=== PATIENT | female | born 1960 | race Caucasian/White ===

== ENCOUNTER 2017-03-01 20:57 | Outpatient (CLI) | payer BC ==
[~2017-03-01 20:57] MED LIST: [UNRECOGNIZED DRUG - OTHER] PO
== END 2017-03-02 06:15 | disposition home or self-care (01) ==
LOC: SLEEP 20:57
PROVIDERS: ATTEND Nurse Practitioner Family
DX: G47.10 Hypersomnia, unspecified (principal); R06.83 Snoring
CPT/HCPCS: 95810

== ENCOUNTER 2018-06-25 06:29 | Outpatient (CLI) | payer BC ==
[~2018-06-25] VITALS: Ht 162.6 cm; Wt 93.4 kg
[2018-06-25] MEDS ORDERED: THYR60TA27 PO (13:13)
== END 2018-06-25 13:15 | disposition home or self-care (01) ==
LOC: PREOP 06:29
PROVIDERS: ATTEND Surgery
DX: Z01.818 Encounter for other preprocedural examination (principal)

== ENCOUNTER 2018-07-02 08:51 | Day surgery (SDC) | payer BC ==
[~2018-07-02] VITALS: Ht 162.6 cm; Wt 90.7 kg
[~2018-07-02 08:51] MED LIST changes: +THYR60TA27 PO
[2018-07-02] MEDS ORDERED: NS IV 500 ML 500 ML ONE (09:12)
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
[2018-07-02 09:25] VITALS: BP 135/65
[2018-07-02] MEDS ORDERED: NS IV 500 ML 500 ML IV PRN (09:27)
[2018-07-02] MEDS ORDERED: fentaNYL INJECTION 100 MCG/2 ML AMP IVP ONE (09:30)
[2018-07-02] MEDS ORDERED: LIDOCAINE JELLY 2% 6 ML SYRINGE MM PRN (09:30)
[2018-07-02] MEDS ORDERED: MIDAZOLAM 2 MG/2 ML (VERSED) VIAL IVP ONE (09:30)
[2018-07-02] MEDS ORDERED: fentaNYL INJECTION 100 MCG/2 ML AMP ONE ×2 (10:34)
[2018-07-02] MEDS ORDERED: MIDAZOLAM 2 MG/2 ML (VERSED) VIAL ONE ×5 (10:34→10:35)
[2018-07-02] MEDS ORDERED: LIDOCAINE JELLY 2% 6 ML SYRINGE ONE (10:34)
[2018-07-02] MEDS ORDERED: ONDANSETRON 4 MG/2 ML (SDV) Z0FRAN ONE (10:35)
--- NOTE | 2018-07-02 10:47 | Progress Note-Pre Operative ---
Pre-Operative Progress Note H&P Reviewed The H&P was reviewed, patient examined and no changes noted. Date Seen by Provider: July 02, 2018 Time Seen by Provider: 10:00 Date H&P Reviewed: July 02, 2018 Time H&P Reviewed: 10:00 Pre-Operative Diagnosis: screening o SERENITY LOPEZ MD July 02, 2018 10:47
--- NOTE | 2018-07-02 10:47 | Conscious Sedation/ASA ---
Conscious Sedation Pre-Proced Time 10:00 ASA Score 2 For ASA 3 and 4: Consider anesthesia and medical clearance. Also, for patients with a history of failed moderate sedation consider anesthesia. Airway Lungs Heart ASA score ASA 1: a normal healthy patient ASA 2: a patient with a mild systemic disease (mid diabetes, controlled hypertension, obesity ASA 3: a patient with a severe systemic disease that limits activity (angina , COPD, prior Myocardial infarction) ASA 4: a patient with an incapacitating disease that is a constant threat to life (CHF, renal failure) ASA 5: a moribund patient not expected to survive 24 hrs. (ruptured aneurysm) ASA 6: a declared brain- patient whose organs are being harvested. For emergent operations, add the letter E after the classification Mallampati Classification Grade 2 Sedation Plan Analgesia, Amnesia, Plan communicated to team members, Discussed options with patient/fam, Discussed risks with patient/fam The patient is an appropriate candidate to undergo the planned procedure, sedation, and anesthesia. The patient immediately re-assessed prior to indication. SERENITY LOPEZ MD July 02, 2018 10:46
--- NOTE | 2018-07-02 10:49 | Discharge Inst-Surgical ---
D/C Lap Instructions-JOHN Follow Up Activity as tolerated High Fiber Diet 25g or more per day Avoid Alcohol, Caffeine, Spicy [place] and Acid foods. Drink 64 fluid oz or more of fluids per day. Symptoms to Report: Fever over 101 degree F, Nausea/Vomiting If any problems/questions: Contact your physician or go to Emergency Room SERENITY LOPEZ MD July 02, 2018 10:49
[2018-07-02] MEDS ORDERED: morphine INJ 10 MG/ML 1ML (SYR OR VIAL) IV PRN (11:00)
[2018-07-02] MEDS ORDERED: HYDROcodone/APAP 5 MG/325 MG (LORTAB) TAB PO PRN (11:00)
[2018-07-02] MEDS ORDERED: ACETAMINOPHEN 325 MG TABLET PO PRN (11:00)
[2018-07-02] MEDS ORDERED: ONDANSETRON 4 MG/2 ML (SDV) Z0FRAN IV PRN (11:00)
[2018-07-02 11:25] VITALS: BP 92/60
[2018-07-02 11:55] VITALS: BP 120/67
[2018-07-02 12:10] VITALS: BP 120/67
--- NOTE | 2018-07-02 12:35 | Progress Note-Post Operative ---
Post-Operative Progess Note Surgeon (s)/Carbon Sequestration Plant Engineer (s) Surgeon SERENITY LOPEZ MD Carbon Sequestration Plant Engineer: none Pre-Operative Diagnosis screening colo Post-Operative Diagnosis mild chronic stage 2 ext and int hemorrhoids. Procedure & Operative Findings Date of Procedure 07/02/18 Procedure Performed/Findings colonoscopy Anesthesia Type cs Estimated Blood Loss Estimated blood loss (mL): minimal Specimens/Packing Specimens Removed none SERENITY LOPEZ MD July 02, 2018 12:35
--- NOTE | 2018-07-02 14:55 | OPERATIVE REPORT ---
DATE OF SERVICE: 07/02/2018 ATTENDING PRIMARY PHYSICIAN: Charo Mccarthy DNP. PREOPERATIVE DIAGNOSIS: Screening colonoscopy. POSTOPERATIVE DIAGNOSIS: Mild chronic stage I external and internal hemorrhoids. Remainder of the rectum and colon were normal. PROCEDURE: Colonoscopy. SURGEON: Serenity Lopez MD ANESTHESIA: Conscious sedation. ESTIMATED BLOOD LOSS: Minimal. FINDINGS: Mild stage I external and internal hemorrhoids. Remainder of the rectum and colon were normal. There were no polyps or any neoplasm identified throughout the colon or rectum. DISPOSITION: The patient tolerated the procedure well. INDICATIONS: The patient is a 58-year-old female referred over to us for screening colonoscopy. She has not had a colonoscopy up to this point in her life. She states that she is otherwise doing well. Does not report any major issues with diarrhea, no constipation as well as no red blood per rectum nor any dark tarry stools. She also does not report any family history of any colon cancer or any other cancers. DESCRIPTION OF PROCEDURE: The patient was brought to the endoscopy suite, laid in the left lateral decubitus position. After adequate IV pain with sedated medications and conscious sedation anesthesia digital rectal examination was performed. Mild chronic stage I external and internal hemorrhoids were identified, which were not actively edematous nor inflamed and no bleeding. Normal sphincter tone was felt and there were no palpable masses. The endoscope was then intubated to the anus and the rectum gently insufflated. The endoscope was then advanced to the valves of Hayes in the rectum with no polyps or any neoplasms identified. We then proceeded through the sigmoid colon where no diverticulosis identified. The endoscope was then advanced to the remainder of the descending, transverse and ascending colon to the cecum. These segments were normal. There were no polyps or any neoplasms identified throughout the colon or rectum. Endoscope was then slowly withdrawn while taking a second look and suctioning of residual air with no additional findings. The patient tolerated the procedure well. We will recommend continued medical management with a high fiber diet with at least 25 grams of fiber per day as well as significant amounts of water daily to promote soft stools on a daily basis. She does not need another colonoscopy for another ten years. Job ID: [id number] DocumentID: [id number] Dictated Date: 07/02/2018 11:14:00 Mathematics Lecturer Date: 07/02/2018 14:55:11 Dictated By: SERENITY LOPEZ MD [facility]
== END 2018-07-02 12:10 | disposition home or self-care (01) ==
LOC: ENDO 08:51
PROVIDERS: ATTEND Surgery
DX: Z12.11 Encounter for screening for malignant neoplasm of colon (principal); K64.0 First degree hemorrhoids; Z87.891 Personal history of nicotine dependence

== ENCOUNTER → 2019-08-18 | Outpatient (CLI) | payer BC ==
--- NOTE | 2019-08-18 13:16 | Diagnostic Imaging Report ---
INDICATION: Routine screening. COMPARISON: 05/28/2012 and 02/24/2009. TECHNIQUE: 2D and 3D bilateral screening mammography was performed with CAD. FINDINGS: Both breasts are heterogeneously dense, limiting the sensitivity of mammography. Circumscribed densities in the upper-outer right breast are noted posteriorly, consistent with intraparenchymal lymph nodes. No spiculated mass or malignant appearing microcalcifications are seen. The axillae are unremarkable. IMPRESSION: No mammographic features suspicious for malignancy are identified. ACR BI-RADS Category 2: Benign findings. Result letter will be mailed to the patient. Note: At least 10% of breast cancer is not imaged by mammography. Dictated by: Dictated on workstation # [id number]
== END ==
LOC: RAD 11:22
PROVIDERS: ATTEND Nurse Practitioner Family
DX: Z12.31 Encounter for screening mammogram for malignant neoplasm of breast (principal)
CPT/HCPCS: 77063; 77067

== ENCOUNTER → 2020-08-24 | Outpatient (CLI) | payer BC ==
--- NOTE | 2020-08-24 13:17 | Diagnostic Imaging Report ---
INDICATION: Routine screening. COMPARISON: 08/18/2019. TECHNIQUE: 2D and 3D bilateral screening mammography was performed with CAD. FINDINGS: Both breasts remain heterogeneously dense, limiting the sensitivity of mammography. Intraparenchymal lymph nodes in the upper outer right breast are stable. No spiculated mass or malignant appearing microcalcifications are seen. The axillae are unremarkable. IMPRESSION: No mammographic features suspicious for malignancy are identified. ACR BI-RADS Category 2: Benign findings. Result letter will be mailed to the patient. Note: At least 10% of breast cancer is not imaged by mammography. Dictated by: Dictated on workstation # [id number]
== END ==
LOC: RAD 11:00
PROVIDERS: ATTEND Nurse Practitioner Family
DX: Z12.31 Encounter for screening mammogram for malignant neoplasm of breast (principal)
CPT/HCPCS: 77063; 77067

== ENCOUNTER 2021-04-21 17:32 | Inpatient (IN) | payer BC ==
[~2021-04-21] VITALS: Ht 162.6 cm; Wt 102.0 kg
--- NOTE | 2021-04-21 17:53 | ED General ---
General Stated Complaint: SOB, FEVER, COUGH, HIGH HEART RATE Source of Information: Patient Exam Limitations: No Limitations History of Present Illness Date Seen by Provider: Apr 21, 2021 Time Seen by Provider: 17:50 Initial Comments To ER by private vehicle from home with reports of fevers up to 101.5, nausea, myalgia, malaise, cough, sore throat. Symptoms began on Saturday of this week, 04/17/2021. She has had a flu vaccine and both COVID vaccines as well as a booster. This evening she noticed a high heart rate with exertion and decided to come to the emergency room. Her fever at home prior to arrival was 101. She has not yet taken any antipyretics. Aside from hypothyroidism she has no medical conditions. Severity: Moderate Associated Systoms: Cough, Fever/Chills, Malaise, Nausea/Vomiting, Weakness Allergies and Home Medications Allergies Coded Allergies: erythromycin base (Verified Adverse Reaction, Unknown, DIZZINESS, 06/25/18) Patient Home Medication List Home Medication List Reviewed: Yes Thyroid,Pork (Chief Meter Reader Thyroid) 60 Mg Tablet, 60 MG PO DAILY, (Reported) Entered as Reported by: TOMY REYNA on 06/25/18 1313 Review of Systems Review of Systems Constitutional: see HPI, chills, fever EENTM: see HPI Respiratory: see HPI, cough, short of breath Cardiovascular: no symptoms reported Genitourinary: no symptoms reported Musculoskeletal: no symptoms reported Skin: no symptoms reported Psychiatric/Neurological: No Symptoms Reported Hematologic/Lymphatic: No Symptoms Reported Past Tzxytan-Imlcuk-Foryap Hx Seasonal Allergies Seasonal Allergies: Yes Past Medical History Surgeries: Yes Section, Thyroidectomy Respiratory: Yes Sleep Apnea Currently Using CPAP: Yes Cardiac: No Neurological: No Genitourinary: No Gastrointestinal: No Musculoskeletal: No Endocrine: Yes (hx partial thyroidectomy) Hypothyroidsim HEENT: No Cancer: No Psychosocial: No Integumentary: No Blood Disorders: No Physical Exam Vital Signs Vital Signs - First Documented Capillary Refill : Height, Weight, BMI Height: 5'4.00" Weight: 200lbs. 0.0oz. 90.349708ex; 34.3 BMI Method: General Appearance: No Apparent Distress, WD/WN, Other (Heart rate is sinus, narrow complex 150. Blood pressure 217/120. Oxygen 93% on room air after walking to the room.) Eyes: Bilateral Eye Normal Inspection, Bilateral Eye PERRL HEENT: PERRL/EOMI, TMs Normal Neck: Full Range of Motion, Normal Inspection Respiratory: Normal Breath Sounds, No Accessory Muscle Use, No Respiratory Dist ress Cardiovascular: Normal Peripheral Pulses, Tachycardia Gastrointestinal: Normal Bowel Sounds, Non Tender, Soft Extremity: Normal Capillary Refill, Normal Inspection Neurologic/Psychiatric: Alert, Oriented x3 Skin: Normal Color, Warm/Dry Focused Exam Lactate Level 04/21/21 18:09: Lactic Acid Level 1.71 Lactic Acid Level Laboratory Tests Test 04/21/21 18:09 Lactic Acid Level 1.71 MMOL/L (0.50-2.00) Progress/Results/Core Measures Suspected Sepsis SIRS Temperature: Pulse: Respiratory Rate: Laboratory Tests 04/21/21 17:44: White Blood Count 18.3H Blood Pressure / Mean: 04/21/21 18:09: Lactic Acid Level 1.71 Laboratory Tests 04/21/21 17:44: Creatinine 0.78, Platelet Count 359, Total Bilirubin 0.4 Results/Orders Lab Results Laboratory Tests Test 04/21/21 17:44 04/21/21 18:09 04/21/21 18:30 Range/Units White Blood Count 18.3 H 4.3-11.0 10^3/uL Red Blood Count 4.62 3.80-5.11 10^6/uL Hemoglobin 14.0 11.5-16.0 g/dL Hematocrit 41 35-52 % Mean Corpuscular Volume 89 80-99 fL Mean Corpuscular Hemoglobin 30 25-34 pg Mean Corpuscular Hemoglobin Concent 34 32-36 g/dL Red Cell Distribution Width 12.5 10.0-14.5 % Platelet Count 359 130-400 10^3/uL Mean Platelet Volume 8.6 L 9.0-12.2 fL Immature Granulocyte % (Auto) 0 % Neutrophils (%) (Auto) 88 H 42-75 % Lymphocytes (%) (Auto) 7 L 12-44 % Monocytes (%) (Auto) 4 0-12 % Eosinophils (%) (Auto) 1 0-10 % Basophils (%) (Auto) 1 0-10 % Neutrophils # (Auto) 16.0 H 1.8-7.8 10^3/uL Lymphocytes # (Auto) 1.2 1.0-4.0 10^3/uL Monocytes # (Auto) 0.7 0.0-1.0 10^3/uL Eosinophils # (Auto) 0.2 0.0-0.3 10^3/uL Basophils # (Auto) 0.1 0.0-0.1 10^3/uL Immature Granulocyte # (Auto) 0.1 0.0-0.1 10^3/uL Neutrophils % (Manual) 81 % Lymphocytes % (Manual) 11 % Monocytes % (Manual) 4 % Eosinophils % (Manual) 1 % Basophils % (Manual) 0 % Band Neutrophils 3 % Blood Morphology Comment NORMAL D-Dimer 0.48 0.00-0.49 UG/ML Sodium Level 138 135-145 MMOL/L Potassium Level 3.8 3.6-5.0 MMOL/L Chloride Level 105 98-107 MMOL/L Carbon Dioxide Level 19 L 21-32 MMOL/L Anion Gap 14 5-14 MMOL/L Blood Urea Nitrogen 12 7-18 MG/DL Creatinine 0.78 0.60-1.30 MG/DL Estimat Glomerular Filtration Rate 87 BUN/Creatinine Ratio 15 Glucose Level 130 H 70-105 MG/DL Calcium Level 10.1 8.5-10.1 MG/DL Corrected Calcium 9.8 8.5-10.1 MG/DL Total Bilirubin 0.4 0.1-1.0 MG/DL Aspartate Amino Transf (AST/SGOT) 25 5-34 U/L Alanine Aminotransferase (ALT/SGPT) 29 0-55 U/L Alkaline Phosphatase 89 40-136 U/L C-Reactive Protein High Sensitivity 1.56 H 0.00-0.50 MG/DL Total Protein 8.2 6.4-8.2 GM/DL Albumin 4.4 3.2-4.5 GM/DL Procalcitonin 0.10 H <0.10 NG/ML Thyroid Stimulating Hormone (TSH) 1.06 0.35-4.94 UIU/ML Free Thyroxine 0.88 0.70-1.48 NG/DL Influenza Type A (RT-PCR) Not Detected Not Detecte Influenza Type B (RT-PCR) Not Detected Not Detecte SARS-CoV-2 RNA (RT-PCR) Not Detected Not Detecte Lactic Acid Level 1.71 0.50-2.00 MMOL/L Urine Color YELLOW Urine Clarity CLEAR Urine pH 5.5 5-9 Urine Specific Sylvia 1.025 H 1.016-1.022 Urine Protein NEGATIVE NEGATIVE Urine Glucose (UA) NEGATIVE NEGATIVE Urine Ketones NEGATIVE NEGATIVE Urine Nitrite NEGATIVE NEGATIVE Urine Bilirubin NEGATIVE NEGATIVE Urine Urobilinogen 0.2 < = 1.0 MG/DL Urine Leukocyte Esterase NEGATIVE NEGATIVE Urine RBC (Auto) 1+ H NEGATIVE Urine RBC RARE /HPF Urine WBC RARE /HPF Urine Squamous Epithelial Cells RARE /HPF Urine Crystals NONE /LPF Urine Bacteria NEGATIVE /HPF Urine Casts NONE /LPF Urine Mucus NEGATIVE /LPF Urine Culture Indicated NO My Orders Orders - THIERNO NAVARRO [employer]ENCE LIAISON Cbc With Automated Diff (04/21/21 17:47) Comprehensive Metabolic Panel (04/21/21 17:47) Ua Culture If Indicated (04/21/21 17:47) Ed Iv/Invasive Line Start (04/21/21 17:47) Chest 1 View, Ap/Pa Only (04/21/21 17:47) Covid 19 Inhouse Test (04/21/21 17:47) Influenza A And B By Pcr (04/21/21 17:47) Fibrin Degradation Products (04/21/21 17:47) Thyroid Stimulating Hormone (04/21/21 17:47) Free T4 (Free Thyroxine) (04/21/21 17:47) Procalcitonin (Pct) (04/21/21 17:47) Hs C Reactive Protein (04/21/21 17:47) Lactated Ringers (Lr 1000 Ml Iv Solution (04/21/21 18:00) Acetaminophen Tablet (Tylenol Tablet) (04/21/21 18:00) Ibuprofen Tablet (Motrin Tablet) (04/21/21 18:00) Metoprolol Tartrate Injection (Lopressor (04/21/21 18:00) Blood Culture (04/21/21 17:47) Lactic Acid Analyzer (04/21/21 17:47) Manual Differential (04/21/21 17:44) Bnp Zoë (04/21/21 18:35) Ceftriaxone 1 Gm Pre-Mix (Rocephin 1 Gm (04/21/21 18:45) Azithromycin Injection (Zithromax Inject (04/21/21 18:45) Metoprolol Tartrate Injection (Lopressor (04/21/21 18:45) Medications Given in ED Current Medications Medications Dose Ordered Sig/Bhargav Route Start Time Stop Time Status Last Admin Dose Admin Acetaminophen 1,000 mg ONCE ONCE PO 04/21/21 18:00 04/21/21 18:01 DC 04/21/21 18:23 1,000 MG Ibuprofen 800 mg ONCE ONCE PO 04/21/21 18:00 04/21/21 18:01 DC 04/21/21 18:23 800 MG Metoprolol Tartrate 5 mg ONCE ONCE IV 04/21/21 18:00 04/21/21 18:01 DC 04/21/21 18:22 5 MG Vital Signs/I&O 04/21/21 04/21/21 04/21/21 04/21/21 17:40 17:40 18:23 18:23 Temp 38.0 38.0 38.0 Pulse 153 Resp 19 B/P (MAP) 217/121 (153) O2 Delivery Room Air Room Air Capillary Refill : Departure Communication (Admissions) NAME: CAITLYN SHARPE [facility] REC#: [id number] PT STATUS: REG ER : 1960 PHYSICIAN: THIERNO NAVARRO APRN ADMIT DATE: 04/21/21/ER Draft Date of Exam:04/21/21 CHEST 1 VIEW, AP/PA ONLY EXAMINATION: Chest 1 view HISTORY: COUGH COMPARISON: 07/02/2013 FINDINGS: Heart size and pulmonary vasculature are normal. There are mild interstitial opacities within the lower lungs. No pleural effusion or pneumothorax. The osseous structures are intact. IMPRESSION: 1. Mild interstitial opacities within the lower lungs which could be seen with atelectasis, pulmonary edema, or atypical infection Dictated on workstation # [id number] Dict: 04/21/21 1818 Trans: 04/21/21 1825 MANI [id number] Interpreted by: PRADEEP DAMON DO Electronically signed by: Impression Primary Impression: Pneumonia Disposition: ADMITTED INPATIENT Condition: Stable Admissions Decision to Admit Reason: Admit from ER (General) Departure-Patient Inst. Referrals: JENNIFER MOSS, DNP (PCP/Family) Primary Care Physician THIERNO NAVARRO APRN Apr 21, 2021 17:52
[2021-04-21] MEDS ORDERED: LACTATED RINGERS 1,000 ML IV SCH (18:00)
[2021-04-21] MEDS ORDERED: IBUPROFEN 800 MG (MOTRIN) TAB PO ONE (18:00)
[2021-04-21] MEDS ORDERED: ACETAMINOPHEN 500 MG TAB (TYLENOL) PO ONE (18:00)
[2021-04-21] MEDS ORDERED: meTOprolol 5 MG/5 ML (LOPRESSOR) VIAL IV ONE ×2 (18:00→18:45)
[2021-04-21 18:03] LABS: BASOPHILS # (AUTO) 0.1 10^3/uL (0.0-0.1); BASOPHILS % (AUTO) 1 % (0-10); EOSINOPHILS # (AUTO) 0.2 10^3/uL (0.0-0.3); EOSINOPHILS % (AUTO) 1 % (0-10); HEMATOCRIT 41 % (35-52); LYMPHOCYTES # (AUTO) 1.2 10^3/uL (1.0-4.0); LYMPHOCYTES % (AUTO) 7 % (12-44); MEAN CORPUSCULAR HEMOGLOBIN 30 pg (25-34); MEAN CORPUSCULAR HGB CONC 34 g/dL (32-36); MEAN CORPUSCULAR VOLUME 89 fL (80-99); MEAN PLATELET VOLUME 8.6 fL (9.0-12.2); MONOCYTES # (AUTO) 0.7 10^3/uL (0.0-1.0); MONOCYTES % (AUTO) 4 % (0-12); NEUTROPHILS % (AUTO) 88 % (42-75); PLATELET COUNT 359 10^3/uL (130-400); WHITE BLOOD COUNT 18.3 10^3/uL (4.3-11.0)
[2021-04-21 18:05] LABS: ALBUMIN 4.4 GM/DL (3.2-4.5); POTASSIUM 3.8 MMOL/L (3.6-5.0)
[2021-04-21 18:06] LABS: CALCIUM 10.1 MG/DL (8.5-10.1)
[2021-04-21 18:07] LABS: TOTAL PROTEIN 8.2 GM/DL (6.4-8.2)
[2021-04-21 18:09] LABS: BILIRUBIN,TOTAL 0.4 MG/DL (0.1-1.0)
[2021-04-21 18:11] LABS: CREATININE SERUM 0.78 MG/DL (0.60-1.30)
--- NOTE | 2021-04-21 18:26 | Diagnostic Imaging Report ---
EXAMINATION: Chest 1 view HISTORY: COUGH COMPARISON: 07/02/2013 FINDINGS: Heart size and pulmonary vasculature are normal. There are mild interstitial opacities within the lower lungs. No pleural effusion or pneumothorax. The osseous structures are intact. IMPRESSION: 1. Mild interstitial opacities within the lower lungs which could be seen with atelectasis, pulmonary edema, or atypical infection Dictated by: Dictated on workstation # [id number]
[2021-04-21 18:28] LABS: BAND NEUTROPHILS 3 %; BASOPHILS % (MANUAL) 0 %; EOSINOPHILS % (MANUAL) 1 %; LYMPHOCYTES % (MANUAL) 11 %; MONOCYTES % (MANUAL) 4 %; NEUTROPHILS % (MANUAL) 81 %; RBC MORPH NORMAL
[2021-04-21 18:35] LABS: FREE T4 (FREE THYROXINE) 0.88 NG/DL (0.70-1.48)
[2021-04-21 18:37] LABS: BILIRUBIN,URINE NEGATIVE (NEGATIVE); CLARITY,URINE CLEAR; COLOR,URINE YELLOW; GLUCOSE, URINE (UA) NEGATIVE (NEGATIVE); KETONES,URINE NEGATIVE (NEGATIVE); LEUKOCYTE ESTERASE ,URINE NEGATIVE (NEGATIVE); NITRITE,URINE NEGATIVE (NEGATIVE); PH,URINE 5.5 (5-9); PROTEIN,URINE NEGATIVE (NEGATIVE)
[2021-04-21 18:44] LABS: BACTERIA,URINE NEGATIVE /HPF; RBC,URINE RARE /HPF; SQUAMOUS EPITHELIAL CELL,UR RARE /HPF; WBC,URINE RARE /HPF
[2021-04-21] MEDS ORDERED: AZITHROMYCIN INJECTION 500 MG in NS (IVPB) 250 ML IV ONE (18:45)
[2021-04-21] MEDS ORDERED: cefTRIAXone 1 GM PRE-MIX 50 ML IV ONE (18:45)
[2021-04-21 19:50] VITALS: BP 148/82
[2021-04-21 20:59] VITALS: BP 217/121
[2021-04-21] MEDS: LACTATED RINGERS 1,000 ML IV SCH (21:54)
[2021-04-21] MEDS ORDERED: ONDANSETRON 4 MG/2 ML (SDV) Z0FRAN IV PRN (22:00)
[2021-04-21] MEDS: ACETAMINOPHEN 325 MG TABLET PO PRN (22:27)
[2021-04-22] VITALS (7 sets, daily range): BP systolic 116–143; BP diastolic 77–88
[2021-04-22] MEDS: IBUPROFEN 600 MG (MOTRIN) TAB PO PRN ×2 (03:46→21:11)
[2021-04-22] MEDS: LACTATED RINGERS 1,000 ML IV SCH ×3 (04:59→23:37)
[2021-04-22 06:04] LABS: BASOPHILS # (AUTO) 0.1 10^3/uL (0.0-0.1); BASOPHILS % (AUTO) 1 % (0-10); EOSINOPHILS # (AUTO) 0.5 10^3/uL (0.0-0.3); EOSINOPHILS % (AUTO) 4 % (0-10); HEMATOCRIT 35 % (35-52); HEMOGLOBIN 11.4 g/dL (11.5-16.0); LYMPHOCYTES % (AUTO) 15 % (12-44); MEAN CORPUSCULAR HEMOGLOBIN 30 pg (25-34); MEAN CORPUSCULAR HGB CONC 33 g/dL (32-36); MEAN CORPUSCULAR VOLUME 90 fL (80-99); MEAN PLATELET VOLUME 8.6 fL (9.0-12.2); MONOCYTES # (AUTO) 0.7 10^3/uL (0.0-1.0); MONOCYTES % (AUTO) 5 % (0-12); NEUTROPHILS # (AUTO) 9.9 10^3/uL (1.8-7.8); NEUTROPHILS % (AUTO) 75 % (42-75); PLATELET COUNT 266 10^3/uL (130-400); WHITE BLOOD COUNT 13.1 10^3/uL (4.3-11.0)
[2021-04-22 06:06] LABS: POTASSIUM 3.8 MMOL/L (3.6-5.0)
[2021-04-22 06:07] LABS: CALCIUM 9.3 MG/DL (8.5-10.1)
[2021-04-22 06:11] LABS: CREATININE SERUM 0.72 MG/DL (0.60-1.30)
[2021-04-22] MEDS: ENOXAPARIN 40 MG/0.4 ML (LOVENOX) SYR SC SCH (08:33)
[2021-04-22] MEDS ORDERED: meTOproloL SUCCINATE 50 MG (TOPROL XL) TAB PO SCH (09:00)
[2021-04-22] MEDS: ACETAMINOPHEN 325 MG TABLET PO PRN ×2 (11:14→15:28)
[2021-04-22] MEDS ORDERED: AZITHROMYCIN 250 MG TAB (ZITHROMAX) PO SCH (18:00)
[2021-04-22] MEDS ORDERED: cefTRIAXone 1 GM/50 ML (PRE-MIX) IV SCH (18:00)
--- NOTE | 2021-04-22 18:32 | History & Physical-Hospitalist ---
History of Present Illness HPI/Chief Complaint Maritza Caracmo is a 61 year old female with PMH hypothyroidism, obesity, who presented with fevers. She has been sick for several days. She reports shortness of breath and cough. She has been coughing up phlegm. She reports nausea. She has had myalgias. She denies chest pain. She denies abdominal pain. Her heart was racing at home and she decided to come in. Source: patient, family Exam Limitations: no limitations Date Seen 04/22/21 Time Seen by a Provider: 11:35 Attending Physician Sav Hrenandez MD PCP Charo Mccarthy,Jessi Referring Physician Date of Admission Apr 21, 2021 at 18:41 Home Medications & Allergies Home Medications Reviewed patient Home Medication Reconciliation performed by pharmacy medication reconciliations electro mechanical technician and/or nursing. Patients Allergies have been reviewed. Allergies Allergies Coded Allergies erythromycin base (Verified Adverse Reaction, Unknown, DIZZINESS, 06/25/18) Past Aujpdwf-Txfiaz-Tslvmd Hx Patient Social History Tobacco Use?: No Smoking Status: Former Smoker Smokeless Tobacco Frequency: Never a User Use of E-Cig and/or Vaping dev: No Use of E-Cig and/or Vaping Raffaele: Never a User Substance use?: No Alcohol Use?: No Pt feels they are or have been: No Seasonal Allergies Seasonal Allergies: Yes Current Status status: No status: No Advance Directives: No Communicates: Verbally Primary Language: Malaysian Preferred Spoken Language: Malaysian Is interpretation needed?: No Sensory deficits: Vision impairment Implanted or Applied Medical D: CPAP Past Medical History Surgeries: Section, Thyroidectomy Sleep Apnea Currently Using CPAP: Yes Hypothyroidsim Blood Disorders: No Family Medical History No Pertinent Family Hx Review of Systems Constitutional: fever, malaise, weakness EENTM: no symptoms reported Respiratory: cough, phlegm, short of breath Cardiovascular: no symptoms reported Gastrointestinal: nausea Genitourinary: no symptoms reported Musculoskeletal: muscle pain Skin: no symptoms reported Psychiatric/Neurological: No Symptoms Reported Physical Exam Physical Exam Vital Signs Vital Signs - First Documented 04/21/21 04/21/21 04/22/21 19:22 20:59 03:49 Pulse Ox 93 O2 Flow Rate 1.00 FiO2 21 Capillary Refill : Less Than 3 Seconds Height, Weight, BMI Height: 5'4.00" Weight: 200lbs. 0.0oz. [id number]; 38.57 BMI Method: General Appearance: No Apparent Distress, Obese HEENT: PERRL/EOMI, Pharynx Normal Neck: Normal Inspection, Supple Respiratory: Lungs Clear, No Respiratory Distress Cardiovascular: Regular Rate, Rhythm, No Edema, No Murmur Gastrointestinal: Normal Bowel Sounds, Non Tender, Soft Extremity: Normal Inspection, No Pedal Edema Neurologic/Psychiatric: Alert, Oriented x3, No Motor/Sensory Deficits, Normal Mood/Affect Skin: Normal Color, Warm/Dry Results Results/Procedures Labs Laboratory Tests 04/21/21 17:44 04/22/21 05:38 Patient resulted labs reviewed. Imaging: Reviewed Imaging Report Assessment/Plan Admission Diagnosis Sepsis due to pneumonia Admission Status: Inpatient Order (span 2 midnights) Reason for Inpatient Admission: IV antibiotics Assessment and Plan Sepsis due to pneumonia SIRS+ with leukocytosis, tachycardia, and fever CXR consistent with pneumonia Started on Rocephin and Azithromycin IV fluids Blood cultures with no growth Not requiring supplemental oxygen Hypothyroid Continue home meds Obesity Clinically significant, no acute management needs DVT prophylaxis: Lovenox Diagnosis/Problems Diagnosis/Problems (1) Sepsis Status: Acute (2) Pneumonia Status: Acute SAV HERNANDEZ MD Apr 22, 2021 18:32
[2021-04-22] MEDS ORDERED: ZOLPIDEM 5 MG (AMBIEN) TAB PO PRN (19:15)
[2021-04-23 03:46] VITALS: BP 114/74
[2021-04-23 05:37] LABS: BASOPHILS # (AUTO) 0.1 10^3/uL (0.0-0.1); BASOPHILS % (AUTO) 1 % (0-10); EOSINOPHILS # (AUTO) 0.5 10^3/uL (0.0-0.3); EOSINOPHILS % (AUTO) 8 % (0-10); HEMATOCRIT 33 % (35-52); HEMOGLOBIN 10.7 g/dL (11.5-16.0); LYMPHOCYTES # (AUTO) 2.3 10^3/uL (1.0-4.0); LYMPHOCYTES % (AUTO) 34 % (12-44); MEAN CORPUSCULAR HEMOGLOBIN 30 pg (25-34); MEAN CORPUSCULAR HGB CONC 33 g/dL (32-36); MEAN CORPUSCULAR VOLUME 93 fL (80-99); MEAN PLATELET VOLUME 8.9 fL (9.0-12.2); MONOCYTES # (AUTO) 0.6 10^3/uL (0.0-1.0); MONOCYTES % (AUTO) 9 % (0-12); NEUTROPHILS # (AUTO) 3.2 10^3/uL (1.8-7.8); NEUTROPHILS % (AUTO) 48 % (42-75); PLATELET COUNT 246 10^3/uL (130-400); WHITE BLOOD COUNT 6.7 10^3/uL (4.3-11.0)
[2021-04-23 05:47] LABS: POTASSIUM 3.9 MMOL/L (3.6-5.0)
[2021-04-23 05:49] LABS: CALCIUM 8.9 MG/DL (8.5-10.1)
[2021-04-23 05:53] LABS: CREATININE SERUM 0.73 MG/DL (0.60-1.30)
[2021-04-23] MEDS: ACETAMINOPHEN 325 MG TABLET PO PRN (07:30)
[2021-04-23] MEDS: ENOXAPARIN 40 MG/0.4 ML (LOVENOX) SYR SC SCH (07:30)
[2021-04-23] MEDS: LACTATED RINGERS 1,000 ML IV SCH (07:35)
[2021-04-23 07:42] VITALS: BP 131/83
[2021-04-23] MEDS ORDERED: cefTRIAXone 2,000 MG in NS (IVPB) 50 ML IV SCH (08:15)
[2021-04-23] MEDS ORDERED: FUROSEMIDE 40 MG/4 ML INJ (LASIX) IVP ONE (08:15)
[2021-04-23] MEDS: RT-ALBUTEROL/IPRATROPIUM 3 ML (DUONEB) VIAL INH PRN ×2 (08:28→12:29)
[2021-04-23] MEDS ORDERED: RT-ALBUINH INH (13:30)
[2021-04-23] MEDS ORDERED: LEVO750T39 PO (13:30)
--- NOTE | 2021-04-23 18:54 | Discharge Summary ---
Discharge Summary Hospital Course Problems/Dx: (1) Sepsis Status: Acute (2) Pneumonia Status: Acute Hospital Course Date of Admission: Apr 21, 2021 at 18:41 Admission Diagnosis : Sepsis due to pneumonia Family Physician/Provider: Charo Mccarthy Dnp Date of Discharge: 04/23/21 Discharge Diagnosis: Sepsis due to pneumonia Hospital Course: Maritza Carcamo is a 61 year old female who was admitted with sepsis due to pneumonia. She was started on IV antibiotics and IV fluids and improved quickly. She did not require any supplemental oxygen. She was very tachycardic on arrival, but this resolved with fluid resuscitation. She was given a prescription for Levaquin to complete as an outpatient. She was also given an Albuterol inhaler. She should follow up with her PCP in about a week. She was discharged home in stable condition. Labs and Pending Lab Test: Laboratory Tests 04/23/21 05:16: White Blood Count 6.7, Red Blood Count 3.55L, Hemoglobin 10.7L, Hematocrit 33L, Mean Corpuscular Volume 93, Mean Corpuscular Hemoglobin 30, Mean Corpuscular Hemoglobin Concent 33, Red Cell Distribution Width 13.0, Platelet Count 246, Mean Platelet Volume 8.9L, Immature Granulocyte % (Auto) 0, Neutrophils (%) (Auto) 48, Lymphocytes (%) (Auto) 34, Monocytes (%) (Auto) 9, Eosinophils (%) (Auto) 8, Basophils (%) (Auto) 1, Neutrophils # (Auto) 3.2, Lymphocytes # (Auto) 2.3, Monocytes # (Auto) 0.6, Eosinophils # (Auto) 0.5H, Basophils # (Auto) 0.1, Immature Granulocyte # (Auto) 0.0, Sodium Level 142, Potassium Level 3.9, Chloride Level 112H, Carbon Dioxide Level 20L, Anion Gap 10, Blood Urea Nitrogen 9, Creatinine 0.73, Estimat Glomerular Filtration Rate 94, BUN/Creatinine Ratio 12, Glucose Level 100, Calcium Level 8.9, Procalcitonin 0.15H Microbiology 04/21/21 Blood Culture - Preliminary, Resulted No growth Home Meds Active Proventil Hfa (Albuterol Sulfate) 6.7 Gm Hfa.aer.ad 2 Puff INH Q6H PRN 30 Days Levofloxacin 750 Mg Tablet 750 Mg PO DAILY 5 Days Reported Perennial House Manager Thyroid (Thyroid,Pork) 60 Mg Tablet 60 Mg PO DAILY Assessment/Pt Instructions See instructions Discharge Planning: >30 minutes discharge planning Discharge Instructions Discharge Diet: No Restrictions Activity as Tolerated: Yes Discharge Physical Examination Vital Signs Vital Signs Date Time Temp Pulse Resp B/P (MAP) Pulse Ox O2 Delivery O2 Flow Rate FiO2 04/23/21 13:00 109 04/23/21 12:29 92 Room Air 04/23/21 07:42 36.8 20 131/83 (99) 04/22/21 03:49 1.00 04/21/21 20:59 21 General Appearance: No Apparent Distress, Obese Respiratory: Lungs Clear, No Respiratory Distress Cardiovascular: Regular Rate, Rhythm, No Murmur Gastrointestinal: Normal Bowel Sounds, Non Tender, Soft Extremity: Normal Inspection, No Pedal Edema Skin: Normal Color, Warm/Dry Neurologic/Psychiatric: Alert, Oriented x3, Normal Mood/Affect Allergies: Coded Allergies: erythromycin base (Verified Adverse Reaction, Unknown, DIZZINESS, 06/25/18) Copy Copies To 1: HUGO MCCARTHY DO Discharge Summary Date of Admission Apr 21, 2021 at 18:41 Date of Discharge Apr 23, 2021 at 14:05 Discharge Date: Apr 23, 2021 Discharge Time: 14:05 Admission Diagnosis Sepsis due to pneumonia Discharge Diagnosis Sepsis due to pneumonia (1) Sepsis Status: Acute (2) Pneumonia Status: Acute SAV HERNANDEZ MD Apr 23, 2021 18:54
== END 2021-04-23 14:05 | disposition home or self-care (01) | DRG 871 ==
LOC: EDUNIT# 17:32 → ER 17:35 → 4TH 18:41
PROVIDERS: ADMIT Internal Medicine; ATTEND Internal Medicine
PROC: 8E0ZXY6 Isolation (ICD-10-PCS; principal; 2021-04-21)
PROC: 5A09357 Assistance with Respiratory Ventilation, Less than 24 Consecutive Hours, Continuous Positive Airway Pressure (ICD-10-PCS; 2021-04-22)
DX: A41.9 Sepsis, unspecified organism (principal); J18.9 Pneumonia, unspecified organism; E66.9 Obesity, unspecified; G47.30 Sleep apnea, unspecified; E89.0 Postprocedural hypothyroidism; Z20.822 Contact with and (suspected) exposure to COVID-19; Z87.891 Personal history of nicotine dependence; Z68.38 Body mass index [BMI] 38.0-38.9, adult
CPT/HCPCS: 36415; 71045; 80048; 80053; 81000; 83605; 83880; 84145; 84439; 84443; 85007; 85025; 85027; 85379; 86141; 87040; 87636; 94640; 94664; 94760

== ENCOUNTER → 2021-11-15 | Outpatient (CLI) | payer BC ==
[~2021-11-15] MED LIST changes: +LEVO750T PO; +RT-ALBUINH INH; +RT-ALBUTEROL SULF 2.5 MG/3 ML PRE-MIX VIAL INH ONE
== END ==
LOC: RT 14:30
PROVIDERS: ATTEND Internal Medicine Rheumatology
DX: R06.02 Shortness of breath (principal); R76.8 Other specified abnormal immunological findings in serum
CPT/HCPCS: 94060; 94726; 94729; C8929; 93306